=== PATIENT | male | born 2000 | race Caucasian/White ===

== ENCOUNTER 2020-03-10 23:41 | Emergency (ER) | payer OTHER ==
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
[2020-03-11] MEDS ORDERED: Lidocaine 1% with EPINEPHrine 1:100,000 50 ML MDV INFILT SCH (01:30)
== END 2020-03-11 04:07 | disposition home or self-care (01) ==
LOC: JP.ED 23:41
DX: S02.5XXA Fracture of tooth (traumatic), initial encounter for closed fracture (principal); S01.511A Laceration without foreign body of lip, initial encounter; W45.8XXA Other foreign body or object entering through skin, initial encounter
CPT/HCPCS: 12052; 40650; 99283; 99283-25